=== PATIENT | female | born 1945 | race Two or more races ===

== ENCOUNTER 2017-08-16 18:12 | Inpatient (IN) | payer MEDICARE, MEDICAID ==
[~2017-08-16] VITALS: Ht 167.6 cm; Wt 117.9 kg
[~2017-08-16 18:12] MED LIST: AML5T PO; CHOL20007 PO; DOPamine 1600mCg/ml 400MG/250ml NSorD5 KIT/BAG IV ONE; DULO30CA PO; EPINEPHrine HCL 1 MG/10 ML SYRG IV ONE; GABA300C10 PO; HYDR-531 PO; INSDRIP IV; LEVO25TA6 PO; LOSA100T33 PO; MET50T PO; MONT10TA34 PO; NITR0.4S29 SL; OMEP20CA74 PO; SODIUM BICARBONATE 8.4% INJ 50ML SYRINGE IV ONE
[2017-08-16] MEDS ORDERED: EPINEPHrine HCL 1 MG/10 ML SYRG ONE (18:20)
[2017-08-16] MEDS ORDERED: NOREPINEPHRINE 8 MG/250ML KIT 250 ML IV ONE (19:05)
[2017-08-16] MEDS ORDERED: SODIUM BICARBONATE 8.4% INJ 50ML SYRINGE ONE (19:26)
[2017-08-16] MEDS ORDERED: SODIUM BICARBONATE 8.4 % INJ 50ML VIAL IV ONE (19:27)
[2017-08-16] MEDS: NOREPINEPHRINE 8 MG/250ML KIT 250 ML IV SCH (19:45)
[2017-08-16] MEDS ORDERED: DOPamine 1600MCG/ML D5W 250 ML IV ONE (19:45)
[2017-08-16] MEDS ORDERED: SODIUM CHLORIDE 0.9% 1,000 ML IV ONE (19:45)
[2017-08-16 20:14] LABS: Red Cell Distribution Width 14.2 % (11.8-14.3)
[2017-08-16 20:16] LABS: Hematocrit 38.6 % (36.0-46.0); Hemoglobin 11.5 g/dL (12.2-16.2); Mean Corpuscular Hemoglobin 27.2 pg (28.0-32.0); Mean Corpuscular Hgb Conc. 29.7 g/dL (32.0-36.0); Mean Corpuscular Volume 91.5 fL (80.0-100.0); Platelet Count (auto) 209 10^3/uL (140-450); Red Blood Cells 4.22 10^6/uL (4.0-5.20); White Blood Cell 17.5 10^3/uL (4.4-10.8)
[2017-08-16 20:24] LABS: Basophils % (manual) 0 (0.0-2.0); Blast Cells 0; Metamyelocytes % 0; Myelocytes % 0; Promyelocytes % 0; Reactive Lymphocytes 0
[2017-08-16 20:36] LABS: Albumin 2.7 g/dL (3.4-5.0); BUN/Creatinine Ratio 15.1; Bilirubin, Total 0.3 mg/dL (0.2-1.0); Calcium 8.4 mg/dL (8.5-10.1); Magnesium 2.6 mg/dL (1.6-2.6); Potassium 3.8 mmol/L (3.5-5.1); Total Protein 6.1 g/dL (6.4-8.2)
[2017-08-16] MEDS ORDERED: ALBUMIN 5% 250 ML IV ONE (20:45)
[2017-08-16] MEDS ORDERED: VANCOMYCIN 1GM/250ML 250 ML IV ONE (20:45)
[2017-08-16] MEDS ORDERED: SODIUM CHLORIDE 0.9% 3,550 ML IV ONE (20:45)
[2017-08-16] MEDS ORDERED: cefTRIAXone 1GM/10ml IVPUSH 10 ML IV ONE (20:45)
[2017-08-16 21:18] LABS: INR 1.15 (0.9-1.15)
[2017-08-16 21:34] LABS: Band Neutrophils % (manual) 2; Eosinophils % (manual) 1 (0-7); Lymphocytes % (manual) 45 (10.0-50.0); Monocytes % (manual) 4 (0-12)
[2017-08-16 21:38] LABS: Urine Bacteria FEW /hpf (None Seen); Urine Blood 1+ /uL (Negative); Urine Specific Gravity 1.019 (1.001-1.035); Urine WBC 10 /hpf (0 - 5)
[2017-08-16 21:39] LABS: Lactic Acid w/Reflex 12.2 mmol/L (0.4-2.0)
[2017-08-16] MEDS ORDERED: LEVOFLOXACIN 750MG 150 ML IV ONE (21:45)
[2017-08-16] MEDS ORDERED: MANNITOL 20% SOLN 100 gm/500ml 250 ML IV ONE (21:45)
[2017-08-16] MEDS ORDERED: DEXAMETHASONE SOD PHOS 10MG/1ML VIAL INJ IV ONE (21:45)
[2017-08-16 21:51] VITALS: BP 84/43
[2017-08-16] MEDS ORDERED: MANNITOL 20 % (20GM/100ML) 500 ML IV ONE (22:14)
[2017-08-16 22:40] LABS: Alcohol, Urine < 3.0 mg/dL (0-5); Amphetamine Screen, Urine NEGATIVE (NEGATIVE); Barbiturate Scree,Urine NEGATIVE (NEGATIVE); Benzodiazephine Screen, Urine NEGATIVE (NEGATIVE); Cannabinoid Screen, Urine NEGATIVE (NEGATIVE); Cocaine Screen, Urine NEGATIVE (NEGATIVE); Opiate Scree,Urine POSITIVE (NEGATIVE); Phencyclidine Screen, Urine NEGATIVE (NEGATIVE)
[2017-08-17] VITALS (8 sets, daily range): BP systolic 81–159; BP diastolic 26–78
[2017-08-17] MEDS ORDERED: MORPHINE SULF INJ 2 MG/ML SYRINGE 1ML IV PRN (01:00)
[2017-08-17] MEDS ORDERED: VANCOMYCIN PER PHARMACY 0 MG IV SCH (01:00)
[2017-08-17] MEDS ORDERED: NITROGLYCERIN 0.4 MG SL TAB SL PRN (01:00)
[2017-08-17] MEDS ORDERED: PIPERACILLIN-TAZOB 2.25GM 50 ML IV ONE (01:30)
[2017-08-17 06:24] LABS: Basophils # (auto) 0 uL; Basophils % (auto) 0.1 % (0.0-2.0); Eosinophils # (auto) 0 uL; Hematocrit 40.1 % (36.0-46.0); Hemoglobin 12.6 g/dL (12.2-16.2); Lymphocytes # (auto) 0.8 uL; Lymphocytes % (auto) 4.5 % (10.0-50.0); Mean Corpuscular Hgb Conc. 31.5 g/dL (32.0-36.0); Mean Corpuscular Volume 85.8 fL (80.0-100.0); Monocytes # (auto) 0.7 uL; Monocytes % (auto) 3.7 % (0.0-12.0); Neutrophils # (auto) 16.9 uL; Neutrophils % (auto) 91.7 % (37.0-80.0); Nucleated Red Blood Cells % 0.1 %; Platelet Count (auto) 257 10^3/uL (140-450); Red Blood Cells 4.67 10^6/uL (4.0-5.20); Red Cell Distribution Width 13.8 % (11.8-14.3); White Blood Cell 18.4 10^3/uL (4.4-10.8)
[2017-08-17] MEDS: PIPERACILLIN-TAZOB 2.25GM 50 ML IV SCH ×2 (06:30→12:30)
[2017-08-17 06:42] LABS: Lactic Acid w/Reflex 7.5 mmol/L (0.4-2.0)
[2017-08-17] MEDS ORDERED: DILTIAZEM HCL 25 MG/5 ML VIAL IV ONE (06:45)
[2017-08-17 07:11] LABS: Albumin 3.1 g/dL (3.4-5.0); BUN/Creatinine Ratio 15.1; Bilirubin, Total 0.7 mg/dL (0.2-1.0); Calcium 6.7 mg/dL (8.5-10.1); Potassium 3.3 mmol/L (3.5-5.1); Total Protein 6.4 g/dL (6.4-8.2)
[2017-08-17] MEDS ORDERED: InsuLIN R (HUMAN) 100 UNITS in SODIUM CHL 0.9% 99 ML IV SCH (08:29)
[2017-08-17] MEDS ORDERED: DEXTROSE (50%) 50ML SYRG IV PRN (08:30)
[2017-08-17] MEDS ORDERED: ACETAMINOPHEN 650 mg PER 20 mL UD ONE (09:45)
[2017-08-17] MEDS ORDERED: ACETAMINOPHEN 650 mg PER 20 mL UD GT PRN (09:45)
[2017-08-17] MEDS: NOREPINEPHRINE 8 MG/250ML KIT 250 ML IV SCH (10:05)
[2017-08-17] MEDS: ACCU-CHEK COMFORT CURVE STRIP VI SCH ×4 (10:30→14:10)
[2017-08-17] MEDS ORDERED: SODIUM CHLORIDE 0.9% 1,000 ML IV SCH (10:45)
[2017-08-17] MEDS ORDERED: IBUPROFEN 800 MG TAB PO ONE ×2 (11:59→12:15)
[2017-08-17] MEDS ORDERED: IBUPROFEN 100MG/5ML ORAL SUSP 100 MG/5 ML UD PO ONE (12:00)
[2017-08-17] MEDS ORDERED: fentaNYL Drip 2500mCg/250mlNS 250 ML IV SCH (14:33)
[2017-08-17] MEDS ORDERED: MORPHINE SULFATE 4 MG/ML SYR/VIAL IV PRN (19:45)
[2017-08-17] MEDS ORDERED: VANCOMYCIN 1GM/250ML 250 ML IV SCH (22:00)
== END 2017-08-17 15:33 | disposition expired | DRG 871 ==
LOC: EDBD 18:12 → ER 18:12 → OVERFLOW 18:13
PROVIDERS: ADMIT Nurse Practitioner Family; ATTEND Internal Medicine
PROC: 5A1935Z Respiratory Ventilation, Less than 24 Consecutive Hours (ICD-10-PCS; principal; 2017-08-16)
PROC: 5A12012 Performance of Cardiac Output, Single, Manual (ICD-10-PCS; 2017-08-16)
PROC: 0BH17EZ Insertion of Endotracheal Airway into Trachea, Via Natural or Artificial Opening (ICD-10-PCS; 2017-08-16)
DX: A41.9 Sepsis, unspecified organism (principal); G93.6 Cerebral edema; I46.9 Cardiac arrest, cause unspecified; R40.20 Unspecified coma; J96.01 Acute respiratory failure with hypoxia; D64.9 Anemia, unspecified; E11.9 Type 2 diabetes mellitus without complications; G93.1 Anoxic brain damage, not elsewhere classified; N39.0 Urinary tract infection, site not specified; J44.9 Chronic obstructive pulmonary disease, unspecified; E03.9 Hypothyroidism, unspecified; I10 Essential (primary) hypertension; R79.89 Other specified abnormal findings of blood chemistry; Y83.8 Other surgical procedures as the cause of abnormal reaction of the patient, or of later complication, without mention of misadventure at the time of the procedure; I48.91 Unspecified atrial fibrillation; K57.30 Diverticulosis of large intestine without perforation or abscess without bleeding; Z79.4 Long term (current) use of insulin; Z79.899 Other long term (current) drug therapy; Z82.49 Family history of ischemic heart disease and other diseases of the circulatory system; Z89.612 Acquired absence of left leg above knee; Z88.8 Allergy status to other drugs, medicaments and biological substances; Z85.89 Personal history of malignant neoplasm of other organs and systems; Y92.89 Other specified places as the place of occurrence of the external cause
CPT/HCPCS: 31500; 36415; 36600; 51702; 70450; 71045; 71250; 74176; 80053; 80307; 81001; 82010; 82805; 82962; 83036; 83605; 83735; 84484; 85007; 85025; 85027; 85379; 85610; 85730; 87040; 87070; 87086; 87205; 92950; 93005; 94002; 94003; 94761; 96361; 96365; 96366; 96367; 96375; G0378; J1100; J1815; J1956; J2543